=== PATIENT | female | born 1990 | race African-American/Black ===

== ENCOUNTER 2018-07-14 11:14 | Inpatient (IN) ==
[2018-07-14 12:42] LABS: Basophils % 0.1 % (0.0-0.8); Eosinophils % 0.3 % (0.00-10.9); Hematocrit 32.1 VOL% (35.7-47.0); Hemoglobin 10.3 GM/DL (12.0-16.0); Immature Granulocytes % 0.7 %; Immature Granulocytes Absolute 0.07 #; Lymphocytes # 1.3 10*3/uL (1.4-4.0); Lymphocytes % 13.2 % (21.3-54.2); Mean Corpuscular HGB Conc 32.1 GM/DL (32-36); Mean Corpuscular Hemoglobin 25 PG (27-34); Monocytes # 0.8 10*3/uL (0.11-0.8); Monocytes % 8.3 % (1.7-12.7); Neutrophils # 7.4 10*3/uL (1.4-7.4); Neutrophils % 77.4 % (38.7-73.9); Platelet Count 255 T/CUMM (130-400); Red Blood Count 4.17 MC/CUMM (3.8-5.5); Red Cell Distribution Width 14.5 % (9.3-17.3); White Blood Count 9.6 T/CUMM (4-12)
[2018-07-14 12:54] LABS: INR 0.9; PT Patient Result 10.1 SECS; Partial Thromboplastin Time 26.2 SECS (0-40)
[2018-07-14 12:54] LABS: Apearance,Urine Slightly Hazy (Clear); Bacteria,Urine Occasional /HPF (Few); Bilirubin,Urine Negative (Negative); Blood, Urine Negative (Negative); Glucose,Urine (UA) Negative (Negative); Ketones,Urine Negative (Negative); Mucus,Urine Occasional /LPF (Occasional); Nitrite,Urine Negative (Negative); Protein,Urine Negative; RBC,Urine 1 /HPF (0-4); Squamous Epithelial Cell,Urine Occasional /HPF (0-10); Urine Color Yellow (Yellow); Urine Specific Gravity 1.008 (1.001-1.035); Urine Urobilinogen < 2.0 EU/DL (0.2-1.0); WBC,Urine 2 /HPF (0-6)
[2018-07-14 13:24] LABS: Alanine Aminotransferase 12 U/L (13-56); Albumin 2.6 G/DL (3.4-5.0); Alkaline Phosphatase 193 U/L (45-117); Aspartate Amino Transferase 14 U/L (0-37); Bilirubin,Direct < 0.100 MG/DL (0.0-0.20); Bilirubin,Total < 0.39 MG/DL (0.2-1.0); Blood Urea Nitrogen 4 MG/DL (7-18); Calcium 8.4 MG/DL (8.5-10.1); Glucose 91 MG/DL (74-106); Osmolality,Calculated 269.8 MOS/KG (273-304); Potassium 3.4 MMOL/L (3.5-5.1); Sodium 137 MMOL/L (136-145); Total Protein 7.7 G/DL (6.4-8.3)
[2018-07-14] MEDS ORDERED: ceFAZolin 2,000 MG in PREMIX 1 EACH IV ONE (13:47)
[2018-07-14] MEDS ORDERED: FAMOTIDINE 20 MG/2 ML VIAL IV ONE (13:47)
[2018-07-14] MEDS ORDERED: CITRIC ACID/SODIUM CITRATE 30 ML UDCUP PO ONE (13:47)
[2018-07-14] MEDS ORDERED: OXYTOCIN/LR 20 UNIT/1,000 ML BAG IV ONE (13:49)
[2018-07-14] MEDS ORDERED: LACTATED RINGERS 1,000 ML IV ONE (13:49)
[2018-07-14] MEDS ORDERED: LACTATED RINGERS 1,000 ML IV SCH (14:00)
[2018-07-14] MEDS ORDERED: METOCLOPRAMIDE 10 MG/2 ML VIAL IV ONE (14:18)
[2018-07-14 16:19] LABS: Apearance,Urine CLEAR (Clear); Bacteria,Urine Occasional /HPF (Few); Bilirubin,Urine Negative (Negative); Blood, Urine Negative (Negative); Glucose,Urine (UA) Negative (Negative); Ketones,Urine Negative (Negative); Mucus,Urine Occasional /LPF (Occasional); Nitrite,Urine Negative (Negative); Protein,Urine Negative; RBC,Urine 2 /HPF (0-4); Squamous Epithelial Cell,Urine Occasional /HPF (0-10); Urine Color Yellow (Yellow); Urine Specific Gravity 1.013 (1.001-1.035); Urine Urobilinogen < 2.0 EU/DL (0.2-1.0); WBC,Urine 1 /HPF (0-6)
[2018-07-14] MEDS ORDERED: fentaNYL 100 MCG/2 ML VIAL ONE (16:48)
[2018-07-14] MEDS ORDERED: MORPHINE 10 MG/10 ML VIAL ONE (16:48)
[2018-07-14] MEDS ORDERED: BUPIVACAINE SPINAL 0.75% 2 ML AMP SPINAL ONE (16:49)
[2018-07-14] MEDS ORDERED: PHENYLEPHRINE 1 MG/10 ML SYRINGE IV ONE (16:49)
[2018-07-14] MEDS ORDERED: hydrOXYzine HCL 25 MG/1 ML VIAL IM PRN (17:32)
[2018-07-14] MEDS ORDERED: diphenhydrAMINE 50 MG/1 ML VIAL IV PRN (17:32)
[2018-07-14] MEDS ORDERED: HYDROmorphone 2 MG/1 ML VIAL IV PRN (17:32)
[2018-07-14] MEDS ORDERED: ONDANSETRON 4 MG/2 ML VIAL IV PRN (17:32)
[2018-07-14] MEDS ORDERED: RHO(D) IMMUNE GLOBULIN 300 MCG SYRINGE IM ONE (19:04)
[2018-07-14] MEDS ORDERED: MAGNESIUM HYDROXIDE SUSP 30 ML UDCUP PO PRN (19:04)
[2018-07-14] MEDS ORDERED: ACETAMINOPHEN 325 MG TABLET PO PRN (19:04)
[2018-07-14] MEDS: DOCUSATE SODIUM 100 MG CAPSULE PO SCH (20:17)
[2018-07-14] MEDS: KETOROLAC 30 MG/1 ML VIAL IV SCH (20:18)
[2018-07-15] MEDS ORDERED: ceFAZolin 1,000 MG in SYRINGE 1 EACH IV SCH (01:00)
[2018-07-15] MEDS: KETOROLAC 30 MG/1 ML VIAL IV SCH (01:25)
[2018-07-15] MEDS: SIMETHICONE CHEW 80 MG TABLET PO PRN ×2 (04:01→15:37)
[2018-07-15 05:41] LABS: Eosinophils % 0.1 % (0.00-10.9); Hematocrit 24.3 VOL% (35.7-47.0); Hemoglobin 8.1 GM/DL (12.0-16.0); Immature Granulocytes % 0.6 %; Immature Granulocytes Absolute 0.13 #; Lymphocytes % 4.7 % (21.3-54.2); Mean Corpuscular HGB Conc 33.3 GM/DL (32-36); Mean Corpuscular Hemoglobin 25 PG (27-34); Mean Corpuscular Volume 76.2 FL (87-102); Mean Platelet Volume 9.8 FL (9.6-12.0); Monocytes # 1.4 10*3/uL (0.11-0.8); Monocytes % 6.8 % (1.7-12.7); Neutrophils # 17.8 10*3/uL (1.4-7.4); Neutrophils % 87.8 % (38.7-73.9); Platelet Count 220 T/CUMM (130-400); Red Blood Count 3.19 MC/CUMM (3.8-5.5); Red Cell Distribution Width 14.4 % (9.3-17.3); White Blood Count 20.3 T/CUMM (4-12)
[2018-07-15] MEDS ORDERED: diphenhydrAMINE 50 MG/1 ML VIAL IV ONE (06:06)
[2018-07-15 06:21] LABS: Band Neutrophils 3 % (0-10); Lymphocytes 3 % (20-55); Platelet Estimate Normal; Segmented Neutrophils 87 % (50-85); Total Cells Counted 100
[2018-07-15] MEDS ORDERED: SODIUM CHLORIDE 0.9% 1,000 ML IV SCH (06:30)
[2018-07-15] MEDS ORDERED: SODIUM CHLORIDE 0.9% 1,000 ML IV PRN ×3 (06:39→07:11)
[2018-07-15] MEDS: DOCUSATE SODIUM 100 MG CAPSULE PO SCH ×2 (09:35→21:00)
[2018-07-15] MEDS: ALUMINUM/MAGNES/SIMETH MAX STR 30 ML UDCUP PO PRN ×3 (10:11→21:40)
[2018-07-15] MEDS: MULTIVITAMIN (PRENATAL) TABLET PO SCH (10:11)
[2018-07-15] MEDS: IBUPROFEN 800 MG TABLET PO SCH ×2 (12:45→21:02)
[2018-07-15] MEDS ORDERED: ceFAZolin 1,000 MG in SYRINGE 1 EACH IV ONE (14:44)
[2018-07-15] MEDS: ONDANSETRON 4 MG/2 ML VIAL IV PRN (15:38)
[2018-07-15] MEDS: BISACODYL 10 MG SUPP RECTAL PRN (18:56)
[2018-07-15] MEDS: ZOLPIDEM 5 MG TABLET PO PRN (21:02)
[2018-07-15] MEDS ORDERED: IBUPROFEN 800 MG TABLET PO SCH (22:00)
[2018-07-16 04:14] LABS: Basophils # 0.1 10*3/uL (0.0-0.2); Basophils % 0.2 % (0.0-0.8); Hematocrit 32.8 VOL% (35.7-47.0); Hemoglobin 11.1 GM/DL (12.0-16.0); Immature Granulocytes % 1.1 %; Immature Granulocytes Absolute 0.42 #; Lymphocytes # 1.6 10*3/uL (1.4-4.0); Lymphocytes % 4.2 % (21.3-54.2); Mean Corpuscular HGB Conc 33.8 GM/DL (32-36); Mean Corpuscular Hemoglobin 26 PG (27-34); Mean Corpuscular Volume 77.2 FL (87-102); Mean Platelet Volume 9.8 FL (9.6-12.0); Monocytes % 5.4 % (1.7-12.7); Neutrophils # 32.7 10*3/uL (1.4-7.4); Neutrophils % 89.1 % (38.7-73.9); Platelet Count 240 T/CUMM (130-400); Red Blood Count 4.25 MC/CUMM (3.8-5.5); White Blood Count 36.8 T/CUMM (4-12)
[2018-07-16] MEDS: IBUPROFEN 800 MG TABLET PO SCH ×3 (04:24→16:42)
[2018-07-16 05:09] LABS: Band Neutrophils 1 % (0-10); Hypochromasia 1+; Lymphocytes 8 % (20-55); Platelet Estimate Adequate; Segmented Neutrophils 86 % (50-85); Total Cells Counted 100
[2018-07-16] MEDS: LACTATED RINGERS 1,000 ML IV SCH ×3 (05:16→21:50)
[2018-07-16] MEDS: MULTIVITAMIN (PRENATAL) TABLET PO SCH (09:36)
[2018-07-16] MEDS: DOCUSATE SODIUM 100 MG CAPSULE PO SCH ×2 (09:36→22:20)
[2018-07-16] MEDS: ONDANSETRON 4 MG/2 ML VIAL IV PRN ×2 (10:13→17:18)
[2018-07-16] MEDS: CLINDAMYCIN INJ 600 MG in PREMIX 1 EACH IV SCH ×2 (10:16→18:01)
[2018-07-16] MEDS ORDERED: SODIUM CHLORIDE 0.9% 50 ML IV ONE (16:43)
[2018-07-16] MEDS ORDERED: METOCLOPRAMIDE 10 MG/2 ML VIAL IV SCH (18:30)
[2018-07-16] MEDS: METOCLOPRAMIDE 10 MG/2 ML VIAL IV SCH (20:08)
[2018-07-16] MEDS: PANTOPRAZOLE 40 MG VIAL IV SCH (21:51)
[2018-07-17] MEDS: ONDANSETRON 4 MG/2 ML VIAL IV PRN ×4 (01:25→23:26)
[2018-07-17] MEDS: IBUPROFEN 800 MG TABLET PO SCH ×4 (01:51→21:44)
[2018-07-17] MEDS: CLINDAMYCIN INJ 600 MG in PREMIX 1 EACH IV SCH ×3 (01:52→18:04)
[2018-07-17 05:28] LABS: Basophils % 0.1 % (0.0-0.8); Eosinophils # 0.1 10*3/uL (0.0-0.87); Eosinophils % 0.3 % (0.00-10.9); Hematocrit 31.1 VOL% (35.7-47.0); Immature Granulocytes % 0.6 %; Immature Granulocytes Absolute 0.11 #; Lymphocytes # 1.5 10*3/uL (1.4-4.0); Lymphocytes % 8.4 % (21.3-54.2); Mean Corpuscular HGB Conc 32.2 GM/DL (32-36); Mean Corpuscular Hemoglobin 26 PG (27-34); Mean Corpuscular Volume 79.5 FL (87-102); Mean Platelet Volume 10.3 FL (9.6-12.0); Monocytes # 1.3 10*3/uL (0.11-0.8); Neutrophils % 83.6 % (38.7-73.9); Platelet Count 260 T/CUMM (130-400); Red Blood Count 3.91 MC/CUMM (3.8-5.5); Red Cell Distribution Width 15.5 % (9.3-17.3); White Blood Count 17.9 T/CUMM (4-12)
[2018-07-17] MEDS: LACTATED RINGERS 1,000 ML IV SCH ×3 (05:39→21:16)
[2018-07-17] MEDS: METOCLOPRAMIDE 10 MG/2 ML VIAL IV SCH ×3 (05:40→20:58)
[2018-07-17] MEDS: PANTOPRAZOLE 40 MG VIAL IV SCH ×2 (09:47→21:07)
[2018-07-17] MEDS: MULTIVITAMIN (PRENATAL) TABLET PO SCH (10:17)
[2018-07-17] MEDS: DOCUSATE SODIUM 100 MG CAPSULE PO SCH ×2 (10:17→21:11)
[2018-07-18] MEDS: CLINDAMYCIN INJ 600 MG in PREMIX 1 EACH IV SCH ×3 (01:51→17:10)
[2018-07-18] MEDS: METOCLOPRAMIDE 10 MG/2 ML VIAL IV SCH ×3 (04:30→20:40)
[2018-07-18] MEDS: LACTATED RINGERS 1,000 ML IV SCH (04:37)
[2018-07-18] MEDS: SIMETHICONE CHEW 80 MG TABLET PO PRN ×3 (04:53→18:00)
[2018-07-18] MEDS: IBUPROFEN 800 MG TABLET PO SCH ×4 (05:51→22:55)
[2018-07-18] MEDS: ONDANSETRON 4 MG/2 ML VIAL IV PRN (08:32)
[2018-07-18] MEDS: MULTIVITAMIN (PRENATAL) TABLET PO SCH (08:36)
[2018-07-18] MEDS: DOCUSATE SODIUM 100 MG CAPSULE PO SCH ×2 (08:36→20:37)
[2018-07-18] MEDS: PANTOPRAZOLE 40 MG VIAL IV SCH ×2 (08:37→21:45)
[2018-07-18] MEDS: BISACODYL 10 MG SUPP RECTAL PRN (20:52)
[2018-07-18] MEDS: ZOLPIDEM 5 MG TABLET PO PRN (21:44)
[2018-07-19] MEDS: CLINDAMYCIN INJ 600 MG in PREMIX 1 EACH IV SCH ×2 (02:16→10:24)
[2018-07-19] MEDS: ALUMINUM/MAGNES/SIMETH MAX STR 30 ML UDCUP PO PRN (02:21)
[2018-07-19] MEDS: METOCLOPRAMIDE 10 MG/2 ML VIAL IV SCH (04:50)
[2018-07-19 05:40] LABS: Basophils % 0.1 % (0.0-0.8); Eosinophils # 0.1 10*3/uL (0.0-0.87); Eosinophils % 1.2 % (0.00-10.9); Hematocrit 32.3 VOL% (35.7-47.0); Hemoglobin 10.5 GM/DL (12.0-16.0); Immature Granulocytes % 0.6 %; Immature Granulocytes Absolute 0.05 #; Lymphocytes % 12.6 % (21.3-54.2); Mean Corpuscular HGB Conc 32.5 GM/DL (32-36); Mean Corpuscular Hemoglobin 26 PG (27-34); Mean Corpuscular Volume 79.4 FL (87-102); Mean Platelet Volume 9.5 FL (9.6-12.0); Monocytes # 0.8 10*3/uL (0.11-0.8); Monocytes % 9.8 % (1.7-12.7); Neutrophils # 6.1 10*3/uL (1.4-7.4); Neutrophils % 75.7 % (38.7-73.9); Platelet Count 353 T/CUMM (130-400); Red Blood Count 4.07 MC/CUMM (3.8-5.5); Red Cell Distribution Width 15.5 % (9.3-17.3); White Blood Count 8.1 T/CUMM (4-12)
[2018-07-19] MEDS: IBUPROFEN 800 MG TABLET PO SCH (06:53)
[2018-07-19 07:37] VITALS: BP 142/88
[2018-07-19] MEDS: SIMETHICONE CHEW 80 MG TABLET PO PRN (09:23)
[2018-07-19] MEDS: DOCUSATE SODIUM 100 MG CAPSULE PO SCH (09:24)
[2018-07-19] MEDS: MULTIVITAMIN (PRENATAL) TABLET PO SCH (09:24)
[2018-07-19] MEDS: PANTOPRAZOLE 40 MG VIAL IV SCH (10:19)
== END 2018-07-19 13:20 | disposition home or self-care (01) | DRG 787 ==
LOC: N.OBOUT 11:14 → N.LD 11:16 → N.OB 07-16 14:00
PROVIDERS: ADMIT Obstetrics & Gynecology; ATTEND Obstetrics & Gynecology
PROC: LDCSECT (ICD-10-PCS; 2018-07-14 15:30)